=== PATIENT | female | born 1960 | race American Indian/Alaskan Native ===

== ENCOUNTER 2017-06-12 23:14 | Emergency (ER) | payer MEDICARE ==
[2017-06-13] MEDS ORDERED: FIORICET PO ONE (03:39)
[2017-06-13 03:40] LABS: Basophils % (Auto) 0.1 % (0.0-1.8); Eosinophils % (Auto) 1.3 % (0.0-4.3); Hematocrit 40.2 % (30.3-42.9); Hemoglobin 13.9 gm/dl (10.1-14.3); Mean Corpuscular HGB Conc 35 % (30-34); Mean Corpuscular Hemoglobin 33 pg (28-32); Mean Corpuscular Volume 95 fl (79-97); Platelet Count 288 K/mm3 (140-440); Red Blood Count 4.22 M/mm3 (3.65-5.03); Red Cell Distribution Width 14.7 % (13.2-15.2); White Blood Count 6.3 K/mm3 (4.5-11.0)
[2017-06-13 04:06] LABS: Alanine Aminotransferase 12 units/L (7-56); Albumin 3.7 g/dL (3.9-5); Albumin/Globulin Ratio 0.9 %; Alkaline Phosphatase 96 units/L (35-129); Anion Gap 19 mmol/L; BUN/Creatinine Ratio 11.66; Blood Urea Nitrogen 7 mg/dL (7-17); Calcium 9.3 mg/dL (8.4-10.2); Carbon Dioxide 25 mmol/L (22-30); Chloride 101.3 mmol/L (98-107); Glucose 92 mg/dL (65-100); Potassium 3.8 mmol/L (3.6-5.0); Sodium 141 mmol/L (137-145); Total Protein 7.7 g/dL (6.3-8.2)
--- NOTE | 2017-06-13 04:47 | Emergency Department Report ---
HPI - General Chief Complaint: High BP Time Seen by Provider: 06/13/17 04:12 - HPI HPI: 56-year-old -[place] female presents to ED with high blood pressure, headache, arthritis pain in joints. Patient states she has a history of blood pressure but her physician as recently taken off medications due to low blood pressure. Patient also has a history of rheumatoid arthritis and said that since he started getting cool she's been having pain in her joints. Patient denies any chest pain, shortness of breath, nausea, vomiting, diaphoresis. ED Past Medical Hx - Past Medical History Previous Medical History?: Yes Hx Hypertension: Yes Hx Arthritis: Yes - Surgical History Past Surgical History?: Yes Additional Surgical History: hysterectomy, right wrist, - Social History Smoking Status: Current Every Day Smoker Substance Use Type: Alcohol - Medications Home Medications: Home Medications Medication Instructions Recorded Confirmed Last Taken Type Adalimumab [Humira] 10 mg SQ Q2W 06/13/17 06/13/17 Unknown History Butalb/Acetamin/Caff 50-325-40 1 tab PO Q8HR PRN #12 tablet 06/13/17 Unknown Rx [Fioricet] Folic Acid [Folvite] 1 mg PO QDAY 06/13/17 06/13/17 Unknown History Lisinopril [Zestril] 20 mg PO QDAY 06/13/17 06/13/17 Unknown History Methotrexate Sodium [Methotrexate] 25 mg IJ 1XW 06/13/17 06/13/17 Unknown History ED Review of Systems ROS: Stated complaint: HYPERTENSION Other details as noted in HPI Constitutional: no symptoms reported Cardiovascular: denies: chest pain, palpitations Gastrointestinal: denies: abdominal pain, nausea, diarrhea Genitourinary: denies: urgency, dysuria, discharge Musculoskeletal: arthralgia, myalgia Neurological: headache Physical Exam - Physical Exam Vital Signs: Vital Signs 06/12/17 06/13/17 06/13/17 23:21 02:23 02:37 Temperature 98.0 F 98.0 F Pulse Rate 83 84 Respiratory 17 20 20 Rate Blood Pressure 154/110 Blood Pressure 149/109 [Left] O2 Sat by Pulse 99 97 Oximetry 06/13/17 03:50 Temperature Pulse Rate Respiratory 20 Rate Blood Pressure Blood Pressure [Left] O2 Sat by Pulse Oximetry Physical Exam: Physical Exam: - General Limitations: No Limitations General appearance: alert, in no apparent distress - Head Head exam: Present: atraumatic, normocephalic - Eye Eye exam: Present: normal appearance - ENT ENT exam: Present: mucous membranes moist - Neck Neck exam: Present: normal inspection - Respiratory Respiratory exam: Present: normal lung sounds bilaterally. Absent: respiratory distress - Cardiovascular Cardiovascular Exam: Present: normal rhythm, normal rate. Absent: systolic murmur, diastolic murmur, rubs, gallop - GI/Abdominal GI/Abdominal exam: Present: soft, normal bowel sounds - Extremities Exam Extremities exam: Present: normal inspection - Back Exam Back exam: Present: normal inspection - Neurological Exam Neurological exam: Present: alert, oriented X3 - Psychiatric Psychiatric exam: normal affect and mood - Skin Skin exam: Present: warm, dry, intact, normal color. Absent: rash ED Course Vital Signs 06/12/17 06/13/17 06/13/17 23:21 02:23 02:37 Temperature 98.0 F 98.0 F Pulse Rate 83 84 Respiratory 17 20 20 Rate Blood Pressure 154/110 Blood Pressure 149/109 [Left] O2 Sat by Pulse 99 97 Oximetry 06/13/17 03:50 Temperature Pulse Rate Respiratory 20 Rate Blood Pressure Blood Pressure [Left] O2 Sat by Pulse Oximetry ED Medical Decision Making - Lab Data Result diagrams: 06/13/17 03:31 06/13/17 03:31 Critical care attestation.: If time is entered above; I have spent that time in minutes in the direct care of this critically ill patient, excluding procedure time. ED Disposition Clinical Impression: Labile blood glucose Headache Qualifiers: Headache type: tension-type Headache chronicity pattern: acute headache Intractability: not intractable Qualified Code(s): G44.209 - Tension-type headache, unspecified, not intractable Disposition: DC-01 TO HOME OR SELFCARE Is pt being admited?: No Does the pt Need Aspirin: No Condition: Stable Instructions: Tension Headache (ED), Hypertension (ED) Prescriptions: Butalb/Acetamin/Caff 50-325-40 [Fioricet] 1 tab PO Q8HR PRN #12 tablet PRN Reason: Headache Referrals: PRIMARY CARE, [Primary Care Provider] - 3-5 Days
[2017-06-13] MEDS ORDERED: DELTASONE PO ONE (05:00)
[2017-06-13 05:26] VITALS: BP 140/95
== END 2017-06-13 05:27 | disposition home or self-care (01) ==
LOC: ED 23:14
DX: G44.209 Tension-type headache, unspecified, not intractable (principal); I10 Essential (primary) hypertension; M06.9 Rheumatoid arthritis, unspecified; F17.200 Nicotine dependence, unspecified, uncomplicated; Z88.6 Allergy status to analgesic agent; Z88.5 Allergy status to narcotic agent
CPT/HCPCS: 36415; 80053; 84484; 85025; 93005; 93010; 99284; J7512